=== PATIENT | female | born 1995 | race Caucasian/White ===

== ENCOUNTER → 2018-07-15 12:06 | Outpatient (CLI) | payer OTHER, SELFPAY ==
[2018-07-15 13:23] LABS: HCG Quantitative /Beta subunit < 2.39 mIU/mL
[2018-07-15 16:38] LABS: Urine N gonorrhoeae NOT DETECTED
[2018-07-15 16:55] LABS: Urine Chlamydia NOT DETECTED
== END ==
PROVIDERS: Visit Provider Specialist
DX: R10.9 Unspecified abdominal pain (principal); R10.2 Pelvic and perineal pain
CPT/HCPCS: 36415; 84702; 87491; 87591

== ENCOUNTER → 2020-08-04 12:03 | Outpatient (CLI) | payer OTHER, SELFPAY ==
[2020-08-04 12:17] LABS: Bacteria Urine None Seen; RBC Urine None Seen (0-5/HPF); WBC Urine None Seen (0-5/HPF)
[2020-08-04 12:50] LABS: Appearance Urine UA CLEAR; Bilirubin Urine UA NEGATIVE (NEGATIVE); Color Urine UA YELLOW; Glucose Urine UA NEGATIVE (Negative); Ketones Urine UA NEGATIVE (NEGATIVE); Leukocyte Esterase Urine UA NEGATIVE (NEGATIVE); Nitrite Urine UA NEGATIVE (Negative); Occult Blood Urine UA NEGATIVE (Negative); Protein Urine UA NEGATIVE (Negative); Specific Gravity Urine UA <=1.005 (1.000-1.035); Urobilinogen Urine UA 0.2 E.U./dL (0.2)
[2020-08-04 12:53] LABS: pH Urine UA 6.5 (4.5-8.0)
[2020-08-04 13:09] LABS: Culture Indicated Urine Cult Not Indicated; Urine Comments Microscopic Normal
== END ==
PROVIDERS: Referring Provider Specialist; Visit Provider Specialist
DX: N39.0 Urinary tract infection, site not specified (principal)
CPT/HCPCS: 81001

== ENCOUNTER → 2020-08-08 07:54 | Outpatient (CLI) | payer OTHER, SELFPAY ==
--- NOTE | 2020-08-08 07:57 | DI.US.S_ITS ---
PROCEDURE: US PELVIC COMPLETE INDICATIONS: IUD PLACEMENT TECHNIQUE: Real-time scanning was performed of the pelvic organs, with image documentation. Additional endovaginal scanning was necessary due to incomplete visualization of the adnexal and endometrial structures by transabdominal scanning. COMPARISON: [facility], , US PELVIC COMPLETE, 10/15/2019, 14:36. [facility], , PELVIC COMPLETE, 07/15/2018, 12:11. FINDINGS: Transabdominal scanning: Limited scanning through the kidneys shows no hydronephrosis. No pathologic free abdominal or pelvic fluid. Endovaginal scanning: Uterus: Uterus is normal in size at 3.4 x 4.4 x 8.1 cm, anteverted. The endometrium measures 3.8 mm in combined thickness with a centrally positioned IUD in place. Ovaries: The right ovary measures 3.0 x 3.1 x 4.8 cm and contains a complex presumed hemorrhagic ovarian cyst measuring 2.6 x 2.5 x 1.9 cm. The left ovary measures 2.0 x 1.5 x 2.9 cm. IMPRESSION: A centrally positioned IUD is present within the endometrial canal. Presumed small right ovarian cyst measuring 2.6 cm in maximal dimension. Normal left ovary. Dictated by: Moe Holder M.D. on 08/08/2020 at 9:49 Approved by: Moe Holder M.D. on 08/08/2020 at 9:52
== END ==
PROVIDERS: Referring Provider Specialist; Visit Provider Specialist
DX: Z30.431 Encounter for routine checking of intrauterine contraceptive device (principal)
CPT/HCPCS: 76856

== ENCOUNTER → 2021-07-03 16:06 | Outpatient (CLI) | payer OTHER, SELFPAY ==
[2021-07-03 17:37] LABS: HCG Quantitative /Beta subunit 14.2 mIU/mL
== END ==
PROVIDERS: PCP Specialist; Referring Provider Specialist; Visit Provider Specialist
DX: N91.2 Amenorrhea, unspecified (principal); R10.2 Pelvic and perineal pain; Z33.1 Pregnant state, incidental; Z97.5 Presence of (intrauterine) contraceptive device
CPT/HCPCS: 36415; 84702

== ENCOUNTER → 2021-07-09 07:09 | Outpatient (CLI) | payer OTHER, SELFPAY ==
[2021-07-09 09:06] LABS: HCG Quantitative /Beta subunit < 2.4 mIU/mL
== END ==
PROVIDERS: Referring Provider Specialist; Visit Provider Specialist
DX: O02.81 Inappropriate change in quantitative human chorionic gonadotropin (hCG) in early pregnancy (principal); Z97.5 Presence of (intrauterine) contraceptive device
CPT/HCPCS: 36415; 84702